=== PATIENT | female | born 1970 | race Caucasian/White ===

== ENCOUNTER 2016-08-25 17:32 | Emergency (ER) | payer SELFPAY ==
--- NOTE | 2016-08-25 19:22 | ED ORDER SUMMARY ---
..... Patient: CRISTIAN LORENZANA OrderSheet [facility] VisitID: [id number] [place] [address] 45y, F Registration Date/Time: 08/25/2016 ORDER SHEET Weight: 92.9 kg (estimated) Allergies: No Known Drug Allergy GENERAL ORDERS: Rapid Influenza Screen (Nasal Pharyngeal) (n) Urgent (17:57 08/25/2016 EKoroleva P.A.-C) (Ack 17:59 LTapper) (19:11 NHouse ER Tech1) CBC w Diff Urgent (18:29 08/25/2016 EKoroleva P.A.-C) (Ack 18:44 LTapper) (18:58 LTapper) CMP Urgent (18:29 08/25/2016 EKoroleva P.A.-C) (Ack 18:44 LTapper) (18:58 LTapper) CRP Urgent (18:29 08/25/2016 EKoroleva P.A.-C) (Ack 18:44 LTapper) (18:58 LTapper) Sed Rate Urgent (18:29 08/25/2016 EKoroleva P.A.-C) (Ack 18:44 LTapper) (18:58 LTapper) MEDICATION ORDERS: IV FLUIDS: ORDER SHEET NOTES: [Electronically signed by Aleja MaganaACinthia-C (19:41 08/25/2016)] [Electronically signed by Tristin Marte R.N. (22:07 08/25/2016)] [Electronically locked/signed by Tristin Marte R.N. (22:07 08/25/2016)]
--- NOTE | 2016-08-25 19:22 | ED NURSING NOTES ---
Clinical Report - Nurses [facility] [address] [place] [address] 08/25/2016 17:33 Patient: CRISTIAN LORENZANA TRIAGE Triage time 17:44 Aug 25 2016. Acuity: LEVEL 4. Chief Complaint: MUSCLE ACHES. --17:48 Tristin Marte R.N. 17:43 08/25/16. BP: 189/97. HR: 89. RR: 18. O2 saturation: 97%. Temp: 98.8 F. Pain level now 8/10. --17:48 Tristin Marte R.N. Weight: 92.9 kg estimated. Height/Length: 64 inches Per Patient. BMI: 35.2. --17:48 Tristin Marte R.N. Medications None. --17:45 Tristin Marte R.N. Allergies No Known Drug Allergy. --17:45 Tristin Marte R.N. History Arrived by private vehicle. ( Pt states generalized pain t/o body. Pt appears in no distress). 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 SOCIAL HX: Never smoker. Occasional alcohol use. No drug use. --17:48 Tristin Marte R.N. PROBLEMS: Cervical cancer. Hypertension. --17:45 Tristin Marte R.N. ADDITIONAL SURGERIES: Appendectomy. --17:46 Tristin Marte R.N. Interventions ID band on patient. To treatment room. --17:48 Tristin Marte R.N. PHYSICAL ASSESSMENT GENERAL / NEURO / PSYCH: Alert. Oriented X 4. Appears in no acute distress. HEENT: Pupils equal, round and reactive to light. No facial asymmetry noted. RESPIRATORY: Respirations not labored. CVS: Capillary refill less than 2 seconds. Pulses within normal limits. GI / : Abdomen soft. SKIN: Skin is warm and dry. --17:48 Tristin Marte R.N. NURSING PROGRESS NOTES Pulse oximeter placed on patient. Patient gowned. Call light placed in reach. Bed placed in lowest position. --17:48 Tristin Marte R.N. 18:02 08/25/16. BP: 166/90. HR: 81. O2 saturation: 96%. --18:02 Tristin Marte R.N. 19:08 08/25/16. BP: 155/83. HR: 75. RR: 18. O2 saturation: 98%. --19:08 Tristin Marte R.N. DISPOSITION / DISCHARGE Departure time: 19:Aug 25 2016. Condition at departure: unchanged. No learning barriers present. Discharge instructions provided and reviewed with the patient. Reviewed medication(s) side effects information. Prescription(s) given to the patient. The patient was discharged by the physician assistant elementary teacher. She was discharged home. She left the Emergency Department ambulatory and via private vehicle. Patient driving. --19:29 Tristin Marte R.N. 19:28 08/25/16. BP: 155/86. HR: 89. RR: 18. O2 saturation: 100%. Temp: 99 F. Pain level now 11/24. --19:29 Tristin Marte R.N. Locked/Released at 08/25/2016 22:07 by Tristin Marte R.N.
--- NOTE | 2016-08-25 19:22 | ED CLINICAL REPORT ---
Clinical Report - Physicians/Mid Levels [facility] [address] [place] [address] 08/25/2016 17:33 Patient: CRISTIAN LORENZANA Time Seen: 18:09 Aug 25 2016. Arrived- By private vehicle. Historian- patient. HISTORY OF PRESENT ILLNESS Chief Complaint: COUGH. 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 No cough or difficulty breathing. She has had chills. (Patient reports diarrhea, fatigue and weakness myalgias or arthralgias over the last 2 days. No sick contacts. Denies any fevers. Denies any cough.). REVIEW OF SYSTEMS No headache, vomiting, diarrhea, hay fever or pedal edema. No difficulty with urination. All systems otherwise negative, except as recorded above. SOCIAL HISTORY Never smoker. Alcohol use. No drug use. ADDITIONAL NOTES The nursing notes have been reviewed. PHYSICAL EXAM Vital Signs: 08/25/2016 17:43 BP: 189/97. HR: 89. RR: 18. O2 saturation: 97%. Temp: 98.8 F. Appearance: Alert. Eyes: Eyes normal inspection. ENT: Pharynx normal. Uvula midline. No peritonsillar mass or muffled or hoarse voice. Neck: Normal inspection. CVS: Normal heart rate and rhythm. No cardiac murmur. Respiratory: No respiratory distress. Breath sounds normal. No accessory muscle use or retractions. Abdomen: Soft. No abdominal tenderness. Back: Normal inspection. No CVA tenderness. Skin: Skin warm. Normal skin color. No rash. LABS, X-RAYS, AND EKG Laboratory Tests: CBC w Diff: (DINORA: 08/25/2016 18:53) ( MsgRcvd 08/25/2016 19:19) Final results Test Result Flag Units (Reference) WHITE BLOOD COUNT 7.6 K/uL (4.5-11.5) RED BLOOD COUNT 4.33 M/uL (4.00-5.20) HEMOGLOBIN 13.2 gm/dL (12.0-16.0) HEMATOCRIT 39.8 % (36.0-46.0) MEAN CELL VOLUME 92 fL (80-100) MEAN CORPUSCULAR HGB 31 pg (26-34) MEAN CORPUSCULAR HGB CONC 33 g/dL (31-37) RED CELL DISTRIBUTION WIDTH 13.6 % (11.6-14.8) PLATELET COUNT 360 K/uL (150-400) NEUTROPHIL % 70.8 % (50-75) LYMPH % 21.6 L % (25-40) MONO % 6.6 % (3-14) EOSINOPHIL % 0.6 % (0-4) BASOPHIL % 0.4 % (0-2) SED RATE WESTERGREN 17 mm/hr (0-20) CMP: (DINORA: 08/25/2016 18:53) ( MsgRcvd 08/25/2016 19:17) Final results Test Result Flag Units (Reference) GLUCOSE 91 mg/dL (70-110) BUN 9 mg/dL (7-18) CREATININE 0.8 mg/dL (0.6-1.3) Estimated GFR >60 mL/min Estimated GFR- >60 mL/min Note: Persistent reduction over 3 months in eGFR<60 mL/min/1.73 m2 defines CKD. Patients with eGFR values>=60 mL/min/1.73 m2 may also have CKD if evidence ofpersistent proteinuria. Additional information may be foundat www.kidney.org. SODIUM 143 mmol/L (136-145) POTASSIUM 3.8 mmol/L (3.5-5.1) CHLORIDE 107 mmol/L (98-107) CARBON DIOXIDE 25 mmol/L (21-32) CALCIUM 7.9 L mg/dL (8.5-10.1) TOTAL PROTEIN 7.0 g/dL (6.4-8.2) ALBUMIN 3.4 g/dL (3.3-5.0) BILIRUBIN, TOTAL 0.3 mg/dL (0.0-1.0) ALKALINE PHOSPHATASE 65 U/L (46-116) AST (SGOT) 23 U/L (15-37) ALT (SGPT) 31 U/L (12-78) C-REACTIVE PROTEIN 1.9 H mg/dL (0.0-0.9) Rapid Influenza Screen: (DINORA: 08/25/2016 17:58) ( MsgRcvd 08/25/2016 18:28) Final results SPECIMEN DESCRIPTION: N Test Result Flag Units (Reference) RAPID INFLUENZA SCREEN DATE: 08/25/16 INFLUENZA A: NEGATIVE SCREEN FOR INFLUENZA A INFLUENZA B: NEGATIVE SCREEN FOR INFLUENZA B . PROGRESS AND PROCEDURES Course of Care: patient here in the ER afebrile, no distress, labs unremarkable. Patient likely with viral symptoms. No focal signs of infectious processes. Lungs clear. Patient with no meningeal signs. TO f/u outpatient. 08/25/2016 19:28 BP: 155/86. HR: 89. RR: 18. O2 saturation: 100%. Temp: 99 F. Patient is stable. Patient/family counseled. Disposition: Discharged. Condition: good. CLINICAL IMPRESSION Acute viral syndrome INSTRUCTIONS Drink plenty of fluids. Prescription Medications: Zofran (orally disintegrating tablets) 4 mg: take 1 orally every 6 hours for 3 days as needed for nausea. Dispense ten (10). No refill. Substitution is permissible. OTC Medications: Acetaminophen ER 650 mg (available over the counter): take 1 orally every 8 hours for 3 days, as needed for fever. Dispense fifteen (15). No refill. Motrin IB 200 mg (available over the counter): take 4 orally every 8 hours for 5 days, as needed for pain Follow-up: Follow up with your doctor in three days. Understanding of the discharge instructions verbalized by patient. (Electronically signed by Aleja Magana P.A.-C 08/25/2016 19:41)
--- NOTE | 2016-08-25 19:22 | ED CLINICAL REPORT ---
Clinical Report - Physicians/Mid Levels [facility] [address] [place] [address] 08/25/2016 17:33 Patient: CRISTIAN LROENZANA Time Seen: 18:09 Aug 25 2016. Arrived- By private vehicle. Historian- patient. HISTORY OF PRESENT ILLNESS Chief Complaint: COUGH. 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 No cough or difficulty breathing. She has had chills. (Patient reports diarrhea, fatigue and weakness myalgias or arthralgias over the last 2 days. No sick contacts. Denies any fevers. Denies any cough.). REVIEW OF SYSTEMS No headache, vomiting, diarrhea, hay fever or pedal edema. No difficulty with urination. All systems otherwise negative, except as recorded above. SOCIAL HISTORY Never smoker. Alcohol use. No drug use. ADDITIONAL NOTES The nursing notes have been reviewed. PHYSICAL EXAM Vital Signs: 08/25/2016 17:43 BP: 189/97. HR: 89. RR: 18. O2 saturation: 97%. Temp: 98.8 F. Appearance: Alert. Eyes: Eyes normal inspection. ENT: Pharynx normal. Uvula midline. No peritonsillar mass or muffled or hoarse voice. Neck: Normal inspection. CVS: Normal heart rate and rhythm. No cardiac murmur. Respiratory: No respiratory distress. Breath sounds normal. No accessory muscle use or retractions. Abdomen: Soft. No abdominal tenderness. Back: Normal inspection. No CVA tenderness. Skin: Skin warm. Normal skin color. No rash. LABS, X-RAYS, AND EKG Laboratory Tests: CBC w Diff: (DINORA: 08/25/2016 18:53) ( MsgRcvd 08/25/2016 19:19) Final results Test Result Flag Units (Reference) WHITE BLOOD COUNT 7.6 K/uL (4.5-11.5) RED BLOOD COUNT 4.33 M/uL (4.00-5.20) HEMOGLOBIN 13.2 gm/dL (12.0-16.0) HEMATOCRIT 39.8 % (36.0-46.0) MEAN CELL VOLUME 92 fL (80-100) MEAN CORPUSCULAR HGB 31 pg (26-34) MEAN CORPUSCULAR HGB CONC 33 g/dL (31-37) RED CELL DISTRIBUTION WIDTH 13.6 % (11.6-14.8) PLATELET COUNT 360 K/uL (150-400) NEUTROPHIL % 70.8 % (50-75) LYMPH % 21.6 L % (25-40) MONO % 6.6 % (3-14) EOSINOPHIL % 0.6 % (0-4) BASOPHIL % 0.4 % (0-2) SED RATE WESTERGREN 17 mm/hr (0-20) CMP: (DINORA: 08/25/2016 18:53) ( MsgRcvd 08/25/2016 19:17) Final results Test Result Flag Units (Reference) GLUCOSE 91 mg/dL (70-110) BUN 9 mg/dL (7-18) CREATININE 0.8 mg/dL (0.6-1.3) Estimated GFR >60 mL/min Estimated GFR- >60 mL/min Note: Persistent reduction over 3 months in eGFR<60 mL/min/1.73 m2 defines CKD. Patients with eGFR values>=60 mL/min/1.73 m2 may also have CKD if evidence ofpersistent proteinuria. Additional information may be foundat www.kidney.org. SODIUM 143 mmol/L (136-145) POTASSIUM 3.8 mmol/L (3.5-5.1) CHLORIDE 107 mmol/L (98-107) CARBON DIOXIDE 25 mmol/L (21-32) CALCIUM 7.9 L mg/dL (8.5-10.1) TOTAL PROTEIN 7.0 g/dL (6.4-8.2) ALBUMIN 3.4 g/dL (3.3-5.0) BILIRUBIN, TOTAL 0.3 mg/dL (0.0-1.0) ALKALINE PHOSPHATASE 65 U/L (46-116) AST (SGOT) 23 U/L (15-37) ALT (SGPT) 31 U/L (12-78) C-REACTIVE PROTEIN 1.9 H mg/dL (0.0-0.9) Rapid Influenza Screen: (DINORA: 08/25/2016 17:58) ( MsgRcvd 08/25/2016 18:28) Final results SPECIMEN DESCRIPTION: N Test Result Flag Units (Reference) RAPID INFLUENZA SCREEN DATE: 08/25/16 INFLUENZA A: NEGATIVE SCREEN FOR INFLUENZA A INFLUENZA B: NEGATIVE SCREEN FOR INFLUENZA B . PROGRESS AND PROCEDURES Course of Care: patient here in the ER afebrile, no distress, labs unremarkable. Patient likely with viral symptoms. No focal signs of infectious processes. Lungs clear. Patient with no meningeal signs. TO f/u outpatient. 08/25/2016 19:28 BP: 155/86. HR: 89. RR: 18. O2 saturation: 100%. Temp: 99 F. Patient is stable. Patient/family counseled. Disposition: Discharged. Condition: good. CLINICAL IMPRESSION Acute viral syndrome INSTRUCTIONS Drink plenty of fluids. Prescription Medications: Zofran (orally disintegrating tablets) 4 mg: take 1 orally every 6 hours for 3 days as needed for nausea. Dispense ten (10). No refill. Substitution is permissible. OTC Medications: Acetaminophen ER 650 mg (available over the counter): take 1 orally every 8 hours for 3 days, as needed for fever. Dispense fifteen (15). No refill. Motrin IB 200 mg (available over the counter): take 4 orally every 8 hours for 5 days, as needed for pain Follow-up: Follow up with your doctor in three days. Understanding of the discharge instructions verbalized by patient. (Electronically signed by Aleja Magana P.A.-C 08/25/2016 19:41)
--- NOTE | 2016-08-25 19:22 | ED NURSING NOTES ---
Clinical Report - Nurses [facility] [address] [place] [address] 08/25/2016 17:33 Patient: CRISTIAN LORENZANA TRIAGE Triage time 17:44 Aug 25 2016. Acuity: LEVEL 4. Chief Complaint: MUSCLE ACHES. --17:48 Tristin Marte R.N. 17:43 08/25/16. BP: 189/97. HR: 89. RR: 18. O2 saturation: 97%. Temp: 98.8 F. Pain level now 8/10. --17:48 Tristin Marte R.N. Weight: 92.9 kg estimated. Height/Length: 64 inches Per Patient. BMI: 35.2. --17:48 Tristin Marte R.N. Medications None. --17:45 Tristin Marte R.N. Allergies No Known Drug Allergy. --17:45 Tristin Marte R.N. History Arrived by private vehicle. ( Pt states generalized pain t/o body. Pt appears in no distress). 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 SOCIAL HX: Never smoker. Occasional alcohol use. No drug use. --17:48 Tristin Marte R.N. PROBLEMS: Cervical cancer. Hypertension. --17:45 Tristin Marte R.N. ADDITIONAL SURGERIES: Appendectomy. --17:46 Tristin Marte R.N. Interventions ID band on patient. To treatment room. --17:48 Tristin Marte R.N. PHYSICAL ASSESSMENT GENERAL / NEURO / PSYCH: Alert. Oriented X 4. Appears in no acute distress. HEENT: Pupils equal, round and reactive to light. No facial asymmetry noted. RESPIRATORY: Respirations not labored. CVS: Capillary refill less than 2 seconds. Pulses within normal limits. GI / : Abdomen soft. SKIN: Skin is warm and dry. --17:48 Tristin Marte R.N. NURSING PROGRESS NOTES Pulse oximeter placed on patient. Patient gowned. Call light placed in reach. Bed placed in lowest position. --17:48 Tristin Marte R.N. 18:02 08/25/16. BP: 166/90. HR: 81. O2 saturation: 96%. --18:02 Tristin Marte R.N. 19:08 08/25/16. BP: 155/83. HR: 75. RR: 18. O2 saturation: 98%. --19:08 Tristin Marte R.N. DISPOSITION / DISCHARGE Departure time: 19:Aug 25 2016. Condition at departure: unchanged. No learning barriers present. Discharge instructions provided and reviewed with the patient. Reviewed medication(s) side effects information. Prescription(s) given to the patient. The patient was discharged by the physician assistant professor of anthropology. She was discharged home. She left the Emergency Department ambulatory and via private vehicle. Patient driving. --19:29 Tristin Marte R.N. 19:28 08/25/16. BP: 155/86. HR: 89. RR: 18. O2 saturation: 100%. Temp: 99 F. Pain level now 11/24. --19:29 Tristin Marte R.N. Locked/Released at 08/25/2016 22:07 by Tristin Marte R.N.
--- NOTE | 2016-08-25 19:22 | ED ORDER SUMMARY ---
..... Patient: CRISTIAN LORENZANA OrderSheet [facility] VisitID: [id number] [place] [address] 45y, F Registration Date/Time: 08/25/2016 ORDER SHEET Weight: 92.9 kg (estimated) Allergies: No Known Drug Allergy GENERAL ORDERS: Rapid Influenza Screen (Nasal Pharyngeal) (n) Urgent (17:57 08/25/2016 EKoroleva P.A.-C) (Ack 17:59 LTapper) (19:11 NHouse ER Tech1) CBC w Diff Urgent (18:29 08/25/2016 EKoroleva P.A.-C) (Ack 18:44 LTapper) (18:58 LTapper) CMP Urgent (18:29 08/25/2016 EKoroleva P.A.-C) (Ack 18:44 LTapper) (18:58 LTapper) CRP Urgent (18:29 08/25/2016 EKoroleva P.A.-C) (Ack 18:44 LTapper) (18:58 LTapper) Sed Rate Urgent (18:29 08/25/2016 EKoroleva P.A.-C) (Ack 18:44 LTapper) (18:58 LTapper) MEDICATION ORDERS: IV FLUIDS: ORDER SHEET NOTES: [Electronically signed by Aleja MaganaACinthia-C (19:41 08/25/2016)] [Electronically signed by Tristin Marte R.N. (22:07 08/25/2016)] [Electronically locked/signed by Tristin Marte R.N. (22:07 08/25/2016)]
--- NOTE | 2016-08-25 22:07 | ED DISCHARGE INSTRUCTIONS ---
Patient: CRISTIAN LORNEZANA General Instructions [facility] VisitID: [id number] [place] [address] 45y, F Registration Date/Time: 08/25/2016 Acute viral syndrome INSTRUCTIONS Drink plenty of fluids. Prescription Medications: Zofran (orally disintegrating tablets) 4 mg: take 1 orally every 6 hours for 3 days as needed for nausea. Dispense ten (10). No refill. Substitution is permissible. OTC Medications: Acetaminophen ER 650 mg (available over the counter): take 1 orally every 8 hours for 3 days, as needed for fever. Dispense fifteen (15). No refill. Motrin IB 200 mg (available over the counter): take 4 orally every 8 hours for 5 days, as needed for pain Follow-up: Follow up with your doctor in three days. Understanding of the discharge instructions verbalized by patient. ADDITIONAL INFORMATION Viral Syndrome (Adult) A viral illness may cause a number of symptoms. The symptoms depend on the part of the body that the virus affects. If it settles in the nose, throat, and lungs, it may cause cough, sore throat, congestion, and sometimes headache. If it settles in the stomach and intestinal tract, it may cause vomiting and diarrhea. Sometimes it causes vague symptoms like "aching all over," feeling tired, loss of appetite, or fever. A viral illness usually lasts1 to 2 weeks, but sometimes it lasts longer. In some cases, a more serious infection can look like a viral syndrome in the first few days of the illness. You may need anotherexam and additional teststo know the difference.Watch for the warning signs listed below. Home care Follow these guidelines for taking care of yourself at home: If symptoms are severe, rest at home for the first 2 to 3 days. Stay away from cigarette smoke - both your smoke and the smoke from others. You may useacetaminophen or ibuprofen for fever, muscle aching, and headache, unless another medicine was prescribed for this.If you have chronic liver or kidney disease or ever had a stomach ulcer or GI bleeding, talk with your doctor before using these medicinesNo one who is younger than 18 and ill with a fever should take aspirin. It may cause severe liver damage. Your appetite may be poor, so a light diet is fine. Avoid dehydration by drinking 8 to 12 8-ounce glasses of fluids each day. This may include water; orange juice; lemonade; apple, grape, and cranberry juice; clear fruit drinks; electrolyte replacement and sports drinks; and decaffeinated teas and coffee. If you have been diagnosed with a kidney disease, ask your doctor how much and what types of fluids you should drink to prevent dehydration. If you have kidney disease, drinking too much fluid can cause it build up in the your body and be dangerous to your health. Vcvq-bkt-zshlati remedies won't shorten the length of the illness but may be helpful forcough, sore throat; and nasal and sinus congestion. Don't use decongestants if you have high blood pressure. Follow-up care Follow up with your health care provider if you do not improve over the next week. When to seek medical care Get prompt medical attention if any of these occur: Cough with lots of colored sputum (mucus) or blood in your sputum Chest pain, shortness of breath, wheezing, or difficulty breathing Severe headache; face, neck, or ear pain Severe, constant pain in the lower right side of your belly (abdominal) Continued vomiting (cant keep liquids down) Frequent diarrhea (more than 5 times a day); blood (red or black color) or mucus in diarrhea Feeling weak, dizzy, or like you are going to faint Extreme thirst Fever of 100.4 F (38 C) oral or higher, not better with fever medication Convulsion Acetaminophen Oral tablet What is this medicine? ACETAMINOPHEN (a set a MERRITT ilene fen) is a pain reliever. It is used to treat mild pain and fever. How should I use this medicine? Take this medicine by mouth with a glass of water. Follow the directions on the package or prescription label. Take your medicine at regular intervals. Do not take your medicine more often than directed. Talk to your supervisor industrial arts education regarding the use of this medicine in children. While this drug may be prescribed for children as young as 6 years of age for selected conditions, precautions do apply. What side effects may I notice from receiving this medicine? Side effects that you should report to your doctor or health critical care nurse specialist as soon as possible: allergic reactions like skin rash, itching or hives, swelling of the face, lips, or tongue breathing problems fever or sore throat redness, blistering, peeling or loosening of the skin, including inside the mouth trouble passing urine or change in the amount of urine unusual bleeding or bruising unusually weak or tired yellowing of the eyes or skin Side effects that usually do not require medical attention (report to your doctor or health critical care nurse specialist if they continue or are bothersome): headache nausea, stomach upset What may interact with this medicine? alcohol imatinib isoniazid other medicines with acetaminophen What if I miss a dose? If you miss a dose, take it as soon as you can. If it is almost time for your next dose, take only that dose. Do not take double or extra doses. Where should I keep my medicine? Keep out of reach of children. Store at room temperature between 20 and 25 degrees C (68 and 77 degrees F). Protect from moisture and heat. Throw away any unused medicine after the expiration date. What should I tell my health care provider before I take this medicine? They need to know if you have any of these conditions: if you frequently drink alcohol containing drinks liver disease an unusual or allergic reaction to acetaminophen, other medicines, foods, dyes or preservatives or trying to get breast-feeding What should I watch for while using this medicine? Tell your doctor or health critical care nurse specialist if the pain lasts more than 10 days (5 days for children), if it gets worse, or if there is a new or different kind of pain. Also, check with your doctor if a fever lasts for more than 3 days. Do not take other medicines that contain acetaminophen with this medicine. Always read labels carefully. If you have questions, ask your doctor or pharmacist. If you take too much acetaminophen get medical help right away. Too much acetaminophen can be very dangerous and cause liver damage. Even if you do not have symptoms, it is important to get help right away. Ibuprofen Oral tablet What is this medicine? IBUPROFEN (eye BYOO proe fen) is a non-steroidal anti-inflammatory drug (NSAID). It is used for dental pain, fever, headaches or migraines, osteoarthritis, rheumatoid arthritis, or painful monthly periods. It can also relieve minor aches and pains caused by a cold, flu, or sore throat. How should I use this medicine? Take this medicine by mouth with a glass of water. Follow the directions on the prescription label. Take this medicine with food if your stomach gets upset. Try to not lie down for at least 10 minutes after you take the medicine. Take your medicine at regular intervals. Do not take your medicine more often than directed. A special MedGuide will be given to you by the pharmacist with each prescription and refill. Be sure to read this information carefully each time. Talk to your supervisor industrial arts education regarding the use of this medicine in children. Special care may be needed. What side effects may I notice from receiving this medicine? Side effects that you should report to your doctor or health critical care nurse specialist as soon as possible: allergic reactions like skin rash, itching or hives, swelling of the face, lips, or tongue black or bloody stools, blood in the urine or in vomit breathing problems changes in vision chest pain general ill feeling or flu-like symptoms nausea or vomiting redness, blistering, peeling or loosening of the skin, including inside the mouth slurred speech or weakness on one side of the body stomach pain unexplained weight gain or swelling unusually weak or tired yellowing of eyes or skin Side effects that usually do not require medical attention (report to your doctor or health critical care nurse specialist if they continue or are bothersome): constipation or diarrhea dizziness gas or heartburn stomach upset What may interact with this medicine? Do not take this medicine with any of the following medications: cidofovir ketorolac methotrexate pemetrexed This medicine may also interact with the following medications: alcohol aspirin diuretics lithium other drugs for inflammation like prednisone warfarin What if I miss a dose? If you miss a dose, take it as soon as you can. If it is almost time for your next dose, take only that dose. Do not take double or extra doses. Where should I keep my medicine? Keep out of the reach of children. Store at room temperature between 15 and 30 degrees C (59 and 86 degrees F). Keep container tightly closed. Throw away any unused medicine after the expiration date. What should I tell my health care provider before I take this medicine? They need to know if you have any of these conditions: asthma cigarette smoker drink more than 3 alcohol containing drinks a day heart disease or circulation problems such as heart failure or leg edema (fluid retention) high blood pressure kidney disease liver disease stomach bleeding or ulcers an unusual or allergic reaction to ibuprofen, aspirin, other NSAIDS, other medicines, foods, dyes, or preservatives or trying to get breast-feeding What should I watch for while using this medicine? Tell your doctor or healthcare professional if your symptoms do not start to get better or if they get worse. This medicine does not prevent heart attack or stroke. In fact, this medicine may increase the chance of a heart attack or stroke. The chance may increase with longer use of this medicine and in people who have heart disease. If you take aspirin to prevent heart attack or stroke, talk with your doctor or health critical care nurse specialist. Do not take other medicines that contain aspirin, ibuprofen, or naproxen with this medicine. Side effects such as stomach upset, nausea, or ulcers may be more likely to occur. Many medicines available without a prescription should not be taken with this medicine. This medicine can cause ulcers and bleeding in the stomach and intestines at any time during treatment. Ulcers and bleeding can happen without warning symptoms and can cause . To reduce your risk, do not smoke cigarettes or drink alcohol while you are taking this medicine. You may get drowsy or dizzy. Do not drive, use machinery, or do anything that needs mental alertness until you know how this medicine affects you. Do not stand or sit up quickly, especially if you are an older patient. This reduces the risk of dizzy or fainting spells. This medicine can cause you to bleed more easily. Try to avoid damage to your teeth and gums when you brush or floss your teeth. You have been given the following additional information: Viral Syndrome (Adult) Acetaminophen Oral tablet Ibuprofen Oral tablet (Electronically signed by Aleja Magana P.A.-C 08/25/2016 19:41)
--- NOTE | 2016-08-25 22:07 | ED MED RECONCILIATION SUMMARY ---
Patient: CRISTIAN LORENZANA Medication Reconciliation Report [facility] VisitID: [id number] [place] [address] 45y, F Registration Date/Time: 08/25/2016 Weight: 92.9 kg Height/Length: 64 in. BMI: 35.2 ALLERGIES: No Known Drug Allergy The patient's Home Medications are listed below: NONE. The source(s) of the original Home Medication information: Not obtained. The following Medications were given to the patient in the Emergency Department: None. The following Medications were prescribed to the patient: Acetaminophen ER 650 mg (available over the counter): take 1 orally every 8 hours for 3 days, as needed for fever. Dispense fifteen (15). No refill. -- Aleja Magana, P.A.-C Motrin IB 200 mg (available over the counter): take 4 orally every 8 hours for 5 days, as needed for pain -- Aleja Magana, P.A.-C Zofran (orally disintegrating tablets) 4 mg: take 1 orally every 6 hours for 3 days as needed for nausea. Dispense ten (10). No refill. Substitution is permissible. -- Aleja Magana, P.A.-C
--- NOTE | 2016-08-25 22:07 | ED MED RECONCILIATION SUMMARY ---
Patient: CRISTIAN LORENZANA Medication Reconciliation Report [facility] VisitID: [id number] [place] [address] 45y, F Registration Date/Time: 08/25/2016 Weight: 92.9 kg Height/Length: 64 in. BMI: 35.2 ALLERGIES: No Known Drug Allergy The patient's Home Medications are listed below: NONE. The source(s) of the original Home Medication information: Not obtained. The following Medications were given to the patient in the Emergency Department: None. The following Medications were prescribed to the patient: Acetaminophen ER 650 mg (available over the counter): take 1 orally every 8 hours for 3 days, as needed for fever. Dispense fifteen (15). No refill. -- Aleja Magana, P.A.-C Motrin IB 200 mg (available over the counter): take 4 orally every 8 hours for 5 days, as needed for pain -- Aleja Magana, P.A.-C Zofran (orally disintegrating tablets) 4 mg: take 1 orally every 6 hours for 3 days as needed for nausea. Dispense ten (10). No refill. Substitution is permissible. -- Aleja Magana, P.A.-C
--- NOTE | 2016-08-25 22:07 | ED MAR SUMMARY ---
..... Medication Administration Record [facility] [address] [place], [place] [id number] Patient: CRISTIAN LORENZANA Visit ID: [id number] 45y, F Weight: 92.9 kg Height/Length: 64 in BMI: 35.2 ALLERGIES: No Known Drug Allergy
--- NOTE | 2016-08-25 22:07 | ED MAR SUMMARY ---
..... Medication Administration Record [facility] [address] [place], [place] [id number] Patient: CRISTIAN LORENZANA Visit ID: [id number] 45y, F Weight: 92.9 kg Height/Length: 64 in BMI: 35.2 ALLERGIES: No Known Drug Allergy
== END 2016-08-25 19:26 | disposition home or self-care (01) ==
LOC: ED SRH 17:32
DX: R05 Cough (principal); B34.9 Viral infection, unspecified
CPT/HCPCS: 90074; 90100; 91400; 91585; 95059; 95150